=== PATIENT | male | born 1965 | race Caucasian/White ===

== ENCOUNTER 2016-12-28 18:21 | Inpatient (IN) | payer BC ==
[~2016-12-28] VITALS: Ht 182.9 cm; Wt 84.9 kg
[2016-12-28] MEDS ORDERED: SODIUM CHLORIDE FLUSH 10ML SYR IVF ONE (18:30)
[2016-12-28] MEDS ORDERED: SODIUM CHLORIDE 0.9% 1,000ML IVBOLUS ONE (18:30)
[2016-12-28] MEDS ORDERED: AMPICILLIN/SULBACTAM 3 GM in SODIUM CHLORIDE 0.9% 100 ML IV ONE (18:30)
[2016-12-28 19:01] LABS: HEMATOCRIT 44.8 % (39.2-51.8); HEMOGLOBIN 15.1 g/dL (13.7-18.0); WHITE BLOOD COUNT 8.4 x10^3/uL (3.4-10)
[2016-12-28 19:15] LABS: BLOOD UREA NITROGEN 13 mg/dL (7-18)
[2016-12-28] MEDS ORDERED: DEXAMETHASONE 4 MG/ML, 5ML ONE (19:52)
[2016-12-28] MEDS ORDERED: DEXAMETHASONE 4 MG/ML, 1ML IVPush ONE ×2 (20:00→21:00)
[2016-12-28] MEDS ORDERED: VANCOMYCIN PER PHARMACY MC ONE (20:00)
[2016-12-28] MEDS ORDERED: HYDROmorphone 1 MG/ML, 1ML ONE (20:06)
[2016-12-28] MEDS ORDERED: DEXAMETHASONE 4 MG/ML, 1ML ONE (20:06)
[2016-12-28] MEDS ORDERED: VANCOMYCIN 1,750 MG in SODIUM CHLORIDE 0.9% 250 ML IV ONE (20:30)
[2016-12-28] MEDS ORDERED: HYDROmorphone 2 MG/ML, 1ML IVPush ONE (20:30)
[2016-12-28] MEDS ORDERED: ONDANSETRON 2MG/ML, 2ML IVPush PRN (20:30)
[2016-12-28] MEDS ORDERED: VANCOMYCIN PER PHARMACY MC PRN (20:30)
[2016-12-28] MEDS ORDERED: ENALAPRILAT 1.25 MG/ML, 2ML IVPush PRN (20:30)
[2016-12-28] MEDS: AMPICILLIN/SULBACTAM 3 GM in SODIUM CHLORIDE 0.9% 100 ML IV SCH (20:30)
[2016-12-28] MEDS: D5%-0.45% NACL 1,000 ML IV SCH (21:34)
[2016-12-28 21:35] VITALS: BP 114/71
[2016-12-28] MEDS ORDERED: PHARMACOKINETIC CONSULTATION MC ONE (22:00)
[2016-12-28] MEDS ORDERED: PHARMACOKINETIC MONITORING MC PRN (22:00)
[2016-12-28] MEDS: FAMOTIDINE 20 MG/2 ML IVPush SCH (22:43)
[2016-12-28] MEDS: morphine SULFATE 10 MG/ML, 1ML IVPush PRN (22:48)
[2016-12-29] MEDS: morphine SULFATE 10 MG/ML, 1ML IVPush PRN (01:55)
[2016-12-29] MEDS: AMPICILLIN/SULBACTAM 3 GM in SODIUM CHLORIDE 0.9% 100 ML IV SCH ×4 (01:55→20:20)
[2016-12-29 04:00] VITALS: BP 103/47
[2016-12-29] MEDS: DEXAMETHASONE 4 MG/ML, 1ML IVPush SCH ×3 (04:00→20:18)
[2016-12-29 04:39] LABS: HEMATOCRIT 44.5 % (39.2-51.8); HEMOGLOBIN 14.8 g/dL (13.7-18.0); WHITE BLOOD COUNT 6.1 x10^3/uL (3.4-10)
[2016-12-29] MEDS: FAMOTIDINE 20 MG/2 ML IVPush SCH ×2 (08:37→20:18)
[2016-12-29] MEDS: D5%-0.45% NACL 1,000 ML IV SCH ×2 (08:40→20:17)
[2016-12-29] MEDS ORDERED: HYDROcodone/APAP 7.5-325MG/15ML UDC PO PRN (09:30)
[2016-12-29] MEDS: VANCOMYCIN 1,600 MG in SODIUM CHLORIDE 0.9% 250 ML IV SCH ×2 (10:19→22:53)
[2016-12-29 20:15] VITALS: BP 124/76
[2016-12-30] MEDS: AMPICILLIN/SULBACTAM 3 GM in SODIUM CHLORIDE 0.9% 100 ML IV SCH ×2 (02:06→09:13)
[2016-12-30 04:24] VITALS: BP 100/54
[2016-12-30] MEDS: DEXAMETHASONE 4 MG/ML, 1ML IVPush SCH (04:53)
[2016-12-30 07:53] VITALS: BP 117/60
[2016-12-30] MEDS: FAMOTIDINE 20 MG/2 ML IVPush SCH (09:13)
[2016-12-30] MEDS: D5%-0.45% NACL 1,000 ML IV SCH (09:24)
[2016-12-30] MEDS: VANCOMYCIN 1,600 MG in SODIUM CHLORIDE 0.9% 250 ML IV SCH (10:58)
== END 2016-12-30 13:05 | disposition home or self-care (01) | DRG 153 ==
LOC: ED 19:18 → EDIP 19:51 → CCU 20:52 → 4NOR 12-29 20:14
PROVIDERS: ADMIT Internal Medicine; ATTEND Internal Medicine
DX: J39.0 Retropharyngeal and parapharyngeal abscess (principal); R13.10 Dysphagia, unspecified; J04.30 Supraglottitis, unspecified, without obstruction; E78.00 Pure hypercholesterolemia, unspecified; J32.0 Chronic maxillary sinusitis; J32.2 Chronic ethmoidal sinusitis; K05.6 Periodontal disease, unspecified; M43.6 Torticollis
CPT/HCPCS: 36415; 70100; 80048; 82040; 83605; 85025; 87040; 87081; 96365; 96375; J0295; J1100; J1170; J3370; J2270; J7030; J7050; S0028